=== PATIENT | female | born 1975 | race Two or more races ===

== ENCOUNTER → 2019-12-18 | Outpatient (CLI) | payer OTHER ==
--- NOTE | 2019-12-18 15:35 | RAD ---
EXAMINATION: BREAST RIGHT, DIGITAL DIAGNOSTIC BILATERAL History: Reason: RT BREAST LUMP / Spl. Instructions: / History: Comparison: None. This exam is a baseline. Technique: Bilateral digital diagnostic mammogram views were obtained. CAD was utilized. 3-D tomosynthesis images were acquired. Findings: Breast Tissue Density C : The breasts are heterogeneously dense, which may obscure small masses. Marker was placed at the right upper outer breast.. There is a well-circumscribed mass at the right upper outer breast measuring up to 3 cm in diameter. This smoothly marginated round mass persists on spot compression. Asymmetry lateral to it is less evident on spot compression imaging. Superior to this finding, there is a 0.45 cm diameter asymmetry or possibly mass. At the inferior right breast at the middle one third, there is a 0.6 cm diameter asymmetry or mass. There are no suspicious left breast findings. No suspicious calcifications or distortion. Limited right breast ultrasound exam was performed. At the right breast 10:00 region 5 cm from the nipple, there is a 2.6 cm x 2.4 cm x 2.2 centimeter tall cyst. No suspicious findings. The right breast 12:00 region, there is a 0.45 cm diameter cyst. The right breast 8:00 region 7 cm from the nipple, there is a 0.9 cm diameter simple cyst. At the right breast 7:00 region 4 cm from the nipple, there is a 0.6 cm x 0.5 cm x 0.6 cm tall well-circumscribed cystic-appearing structure with internal debris or possibly thin septations. IMPRESSION: Right upper outer breast large simple cyst is identified and corresponds to the reported palpable abnormality. No suspicious mass of the right upper-outer breast. There is a complicated or possibly mildly complex right breast 7:00 region cyst. Six-month follow-up right mammography and right breast ultrasound examination is recommended to assess stability. BI-RADS category 3: Probably benign. The images were reviewed with computer aided detection. Patient information is entered into the reminder system with a target due date for the next screening mammogram. Mammography is the most sensitive method for finding small breast cancers, but it does not detect them all and is not a substitute for careful clinical examination. A negative mammogram does not negate a clinically suspicious finding and should not result in delay in biopsying a clinically suspicious abnormality. "Our facility is accredited by the [employer] Mammography Program." Electronically signed by: Shahram Arreguin MD (12/18/2019 3:33 PM) [id number]
== END | disposition home or self-care (01) ==
LOC: MAMMO 13:28
PROVIDERS: ATTEND Family Medicine
DX: N63.11 Unspecified lump in the right breast, upper outer quadrant (principal); N60.01 Solitary cyst of right breast
CPT/HCPCS: 76641; 77066

== ENCOUNTER → 2020-10-23 | Outpatient (CLI) | payer OTHER ==
--- NOTE | 2020-10-23 16:14 | RAD ---
AP and Lateral Views of the Chest 10/23/2020 3:08 PM Indication: Reason: LEFT SIDE CHEST PAIN RADIATING DOWN LEFT ARM / Spl. Instructions: / History: Comparison: None Findings: There is mild blunting right costophrenic angle possibly trace effusion or atelectasis. No pneumothorax is identified. Heart size is normal. Bony thorax is intact. IMPRESSION: Blunting of right costophrenic angle possible small pleural effusion or atelectasis Electronically signed by: Leo Lozano MD (10/23/2020 4:11 PM) [id number]
== END ==
LOC: RAD 15:03
PROVIDERS: ATTEND Family Medicine
DX: R07.89 Other chest pain (principal)
CPT/HCPCS: 71046

== ENCOUNTER 2021-01-29 00:07 | Observation (INO) | payer OTHER ==
[~2021-01-29] VITALS: Ht 152.4 cm; Wt 65.5 kg
--- NOTE | 2021-01-29 00:13 | PHYS DOC ---
Past History Past Medical History: Angina, Diabetes, High Cholesterol, Hypertension Smoking: Non-smoker General Adult HPI: HPI: ".. I have chest pain... every night.. since July.. I see Dr. Campa.. I see [facility]... I see Dr. Trevino.. I have chest pain.. all the time.. ... chest pain every night..." " They are waiting .. to do something..." Patient is a 44 year old female who presents with above hx and complaints nightly central chest pain. Pain is located in the middle chest. There is some slight shortness of breath. There is some association with deep breaths and cough. Patient did have a diagnosis of Covid on December 25. No vaccination for COVID. Patient does have a history of diabetes and elevated cholesterol. Patient denies any trauma. Patient denies any specific ill contacts. Patient denies any immunosuppression. Patient denies any recent travel. Patient is on lisinopril for hypertension. Takes insulin for diabetes. No previous history of myocardial infarction. No previous history of DVT or pulmonary embolisms. Patient states overall symptoms are worse tonight. Patient noticed lower leg edema with more on the left. Chest pain tonight became much more severe after coming out of the shower approximately 1 hour ago. Patient does not smoke. Review of Systems: Review of Systems: Constitutional: Denies fever or chills Eyes: Denies change in visual acuity HENT: Denies nasal congestion or sore throat Respiratory: Complains of shortness of breath Cardiovascular: Complains of chest pain and left ankle edema GI: Denies abdominal pain, nausea, vomiting, bloody stools or diarrhea : Denies dysuria Musculoskeletal: Denies back pain or joint pain Integument: Denies rash Neurologic: Denies headache, focal weakness or sensory changes Endocrine: Denies polyuria or polydipsia Lymphatic: Denies swollen glands Psychiatric: Denies depression or anxiety Family History: Family History: Noncontributory Current Medications: Current Meds: See nursing for home meds Allergies: Allergies: No known drug allergies Physical Exam: PE: Constitutional: In acute distress, non-toxic appearance. [] HENT: Normocephalic, atraumatic, bilateral external ears normal, oropharynx moist, no oral exudates, nose normal. [] Eyes: PERRLA, EOMI, conjunctiva normal, no discharge. [] Neck: Normal range of motion, no tenderness, supple, no stridor. [] Cardiovascular: Tachycardia heart rate regular rhythm, no murmur [] Lungs & Thorax: Bilateral breath sounds equal apex with scattered wheezing throughout on auscultation [] Abdomen: Bowel sounds normal, soft, no tenderness, no masses, no pulsatile masses. Insulin injection barrera Skin: Warm, diaphoretic, no erythema, no rash. [] Back: No tenderness, no CVA tenderness. [] Extremities: No tenderness, no cyanosis, no clubbing, ROM intact, bilateral lower leg edema. More edema on the left. Neurologic: Alert and oriented X 3, normal motor function, normal sensory function, no focal deficits noted. [] Psychologic: Affect anxious, judgement normal, mood normal. [] EKG: EKG: My interpretation of EKG shows a sinus tachycardia with ST changes consistent with subendocardial injury. Abnormal EKG []Suspect Acute Inferior AZ. Time of EKG is 00 18 minutes My interpretation second EKG at 204 hours shows a sinus tachycardia [address] and T abnormality. Findings consistent with inferior AZ. Overall morphology is somewhat improved or her first EKG. Radiology/Procedures: Radiology/Procedures: [][place] [address] IMAGING REPORT Signed PATIENT: FADUMO POLLOCKACCOUNT: [id number] : 1975 LOCATION: ER AGE: 45 SEX: F EXAM STATUS: REG ER ORD. PHYSICIAN: ELVIRA FELIZ MD REASON: cp PROCEDURE: PORTABLE CHEST 1V Study: XR CHEST 1V Indication: Chest pain. Comparison: 10/23/2020 Findings: Hazy airspace opacities at the lower half of both lungs on a background of increased lung markings. No large effusion or pneumothorax. Unchanged cardiomediastinal silhouette and jordon. Impression: New from the 10/23/2020 comparison are ill-defined, hazy opacities at the lower half of both lungs. In the appropriate clinical setting a viral/atypical pneumonia should be considered. [place] less likely given patient age is pulmonary edema. Electronically signed by: NEENA MYLES MD (01/29/2021 1:04 AM) [facility] DICTATED AND SIGNED BY: NEENA MYLES MD DATE: 01/29/21 010 CC: ALLISON CAMPA MD; ELVIRA FELIZ MD ~MTH0 0 Heart Score: C/O Chest Pain: Yes HEART Score for Chest Pain: HEART Score for Chest Pain Response (Comments) Value History Highly Suspicious 2 ECG Nonspecific Repolarizatio 1 Age >45 - < 65 1 Risk Factors 1 or 2 Risk Factors 1 Troponin >3 x Normal Limit 2 Total 7 Risk Factors: Risk Factors: DM, Current or recent (<one month) smoker, HTN, HLP, family history of CAD, obesity. Risk Scores: Score 0 - 3: 2.5% MACE over next 6 weeks - Discharge Home Score 4 - 6: 20.3% MACE over next 6 weeks - Admit for Clinical Observation Score 7 - 10: 72.7% MACE over next 6 weeks - Early Invasive Strategies Course & Med Decision Making: Course & Med Decision Making Pertinent Labs and Imaging studies reviewed. (See chart for details) Discussed presentation, testing and tx. [plan with Dr. Rodriguez. Give full dosage of Lovenox and aspirin.. Cardilology will follow her Trops.here at [facility]. Admit to Dr. Dodd. At time of transport to [facility] -ICU, pt. report s marked resolution of chest discomfort, and less shortness of breath. Call placed to Dr. Dodd- Discussed finding with him at 0830 hrs. Impression: 1, Chest Pain 2. + COVID test 12/25/2020- ( no vaccination) 3. Hx. DM 4. Hx HTN 5. Repiratory Failure - Hypoxia 83% Rm Air 6. CHF- BNP 6702 7. AZ = Trop .1.388 8. Anemia Hgb-10.3 9. Anemia hemoglobin 10.3 10.Renal Insuf. Bun 25/Creat.1.4 [] Prasanth Disclaimer: Prasanth Disclaimer: This electronic medical record was generated, in whole or in part, using a voice recognition dictation system. Departure Departure: Referrals: ALLISON CAMPA MD (PCP) Prasanth Disclaimer This chart was dictated in whole or in part using Voice Recognition software in a busy, high-work load, and often noisy Emergency Department environment. It may contain unintended and wholly unrecognized errors or omissions. Dragon Disclaimer This chart was dictated in whole or in part using Voice Recognition software in a busy, high-work load, and often noisy Emergency Department environment. It may contain unintended and wholly unrecognized errors or omissions. Dragon Disclaimer This chart was dictated in whole or in part using Voice Recognition software in a busy, high-work load, and often noisy Emergency Department environment. It may contain unintended and wholly unrecognized errors or omissions. ELVIRA FELIZ MD Jan 29, 2021 00:13
[2021-01-29] MEDS ORDERED: IV RINGERS SOLUTION,LACTATED 1,000 ML IV SCH (01:00)
[2021-01-29] MEDS ORDERED: ASPIRIN 325 MG TABLET PO ONE (01:00)
[2021-01-29] MEDS ORDERED: ENOXAPARIN ** NOTE DOSE ** SYRINGE SQ ONE ×2 (01:02→01:30)
--- NOTE | 2021-01-29 01:06 | RAD ---
Study: XR CHEST 1V Indication: Chest pain. Comparison: 10/23/2020 Findings: Hazy airspace opacities at the lower half of both lungs on a background of increased lung markings. N o large effusion or pneumothorax. Unchanged cardiomediastinal silhouette and jordon. Impression: New from the 10/23/2020 comparison are ill-defined, hazy opacities at the lower half of both lungs. In the appropriate clinical setting a viral/atypical pneumonia should be considered. [place] less likely gi tari patient age is pulmonary edema. Electronically signed by: NEENA MYLES MD (01/29/2021 1:04 AM) [facility]ERS[facility]MYA
[2021-01-29 01:24] LABS: BARBITURATES NEG (NEG); BENZODIAZEPINES NEG (NEG); CANNABINOIDS NEG (NEG); COCAINE NEG (NEG); METHADONE NEG (NEG); OPIATES NEG (NEG); PHENCYCLIDINE NEG (NEG)
[2021-01-29 01:25] LABS: BASO # 0.1 x10^3/uL (0.0-0.2); BASO % 1 % (0-3); EOS # 0.1 x10^3/uL (0.0-0.7); EOS % 1 % (0-3); HEMATOCRIT 31.7 % (36.0-47.0); HEMOGLOBIN 10.3 g/dL (12.0-15.5); LYMPH # 1.2 x10^3/uL (1.0-4.8); LYMPH % 11 % (24-48); MEAN CORPUSCULAR HEMOGLOBIN 28 pg (25-35); MEAN CORPUSCULAR HGB CONC 33 g/dL (31-37); MEAN CORPUSCULAR VOLUME 85 fL (79-100); MONO # 0.4 x10^3/uL (0.0-1.1); MONO % 4 % (0-9); NEUT # 9.9 x10^3uL (1.8-7.7); NEUT % 84 % (31-73); PLATELET COUNT 510 x10^3/uL (140-400); RED BLOOD COUNT 3.71 x10^6/uL (3.50-5.40); RED CELL DISTRIBUTION WIDTH 16.5 % (11.5-14.5); WHITE BLOOD COUNT 11.8 x10^3/uL (4.0-11.0)
[2021-01-29 01:29] LABS: CALCIUM 8.2 mg/dL (8.5-10.1); CREATININE 1.4 mg/dL (0.6-1.0); GFR 40.5; POTASSIUM 4.9 mmol/L (3.5-5.1)
[2021-01-29 01:30] LABS: AMPHETAMINE/METHAMPHETAMINE NEG (NEG)
[2021-01-29 01:31] LABS: BILIRUBIN,URINE NEG (NEG); CLARITY,URINE CLEAR; COLOR,URINE YELLOW; GLUCOSE,URINE 100 mg/dL (NEG)
[2021-01-29 01:32] LABS: BACTERIA,URINE 0 /HPF (0-FEW); NITRITE,URINE NEG (NEG); SQUAMOUS EPITHELIAL CELL,UR OCC /LPF; UROBILINOGEN,URINE 0.2 mg/dL (0.2 mg/dL); WBC,URINE RARE /HPF (0-4)
[2021-01-29 01:40] LABS: ALBUMIN 2.3 g/dL (3.4-5.0); DIRECT BILIRUBIN 0.1 mg/dL (0.0-0.2); MAGNESIUM 1.8 mg/dL (1.8-2.4); TOTAL BILIRUBIN 0.2 mg/dL (0.2-1.0); TOTAL PROTEIN 5.6 g/dL (6.4-8.2)
[2021-01-29] MEDS ORDERED: ACETAMINOPHEN 325 MG TABLET PO PRN (02:15)
[2021-01-29] MEDS ORDERED: MORPHINE SULFATE 2 MG/ML DISP.SYRIN. IVP PRN (02:15)
[2021-01-29] MEDS ORDERED: ONDANSETRON PF 4 MG/2 ML VIAL. IVP PRN (02:15)
--- NOTE | 2021-01-29 02:15 | EKG ---
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
--- NOTE | 2021-01-29 02:17 | EKG ---
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
[2021-01-29] MEDS ORDERED: NITROGLYCERIN OINT 1 GM PACKET. TP ONE (02:30)
[2021-01-29] MEDS ORDERED: POTASSIUM CHLORIDE 20 MEQ TABLET.ER. PO ONE (02:30)
[2021-01-29] MEDS ORDERED: ANTI-COAG MONITOR BY PHARMACY. MC PRN (02:30)
[2021-01-29] MEDS ORDERED: FUROSEMIDE 40 MG/4 ML VIAL IVP ONE (02:30)
[2021-01-29 04:36] VITALS: BP 177/93
[2021-01-29] MEDS ORDERED: INSU100V37 SQ (05:06)
[2021-01-29] MEDS ORDERED: ASPI-630 PO (05:06)
[2021-01-29] MEDS ORDERED: LISI10TA16 PO (05:06)
--- NOTE | 2021-01-29 05:51 | NUR ---
The patient, FADUMO POLLOCK, 45 y/o, F admitted by CHERYLE MARK MD, was given written information regarding hospital policies, unit procedures and contact persons. Valuables were checked and noted. Reviewed with PT her PMH, PSH, SH, FH and medications.
[2021-01-29] MEDS ORDERED: IV NORMAL SALINE 1,000ML 1,000 ML IV SCH ×2 (06:00→09:00)
[2021-01-29] MEDS ORDERED: HEPARIN 25,000UTS/250ML PREMIX 250 ML IV ONE (06:06)
[2021-01-29] MEDS ORDERED: HEPARIN 25,000UTS/250ML PREMIX 250 ML IV PRN (06:15)
[2021-01-29] MEDS ORDERED: HEPARIN for IV BOLUS 10,000 UNIT/10 ML VIAL. IV PRN (06:15)
[2021-01-29] MEDS ORDERED: NITROGLYCERIN PREMIX 250 ML IV PRN (06:15)
[2021-01-29 07:00] VITALS: BP 165/96
--- NOTE | 2021-01-29 07:05 | NUR ---
Dr. [place] notified of elevated troponin at 0440. Orders received. PT transferred to ICU for drips to be started awaiting bed placement at [facility]. Dr. Dodd notified at 0515.
[2021-01-29 08:00] VITALS: BP 146/86
[2021-01-29] MEDS ORDERED: ASPIRIN CHEWABLE 81 MG TABLET. PO SCH (08:00)
--- NOTE | 2021-01-29 08:24 | NUR ---
Dr Rodriguez called regarding pt most recent troponin of 18.804, Dr Rodriguez states he will be in to see pt soon and wants a new 12 lead EKG Addendum: 01/29/21 at 0826 by XANDER THOMSON RN 12 lead completed. pt denies chest pain at this time
--- NOTE | 2021-01-29 08:46 | NUR ---
Tiffany, nurse practitioner with Cardiology called and stated to have pt transferred to [place] for a heart cath. He stated he spoke with Dr Coburn, asked that we get pt transferred to [place] to go straight to matlab developer, he states pt can wait in holding until there is a bed available. Addendum: 01/29/21 at 0855 by XANDER THOMSON RN called nursing tapper supervisor and updated her
[2021-01-29 09:00] VITALS: BP 165/91
[2021-01-29] MEDS ORDERED: ENOXAPARIN ** NOTE DOSE ** SYRINGE SQ SCH (09:00)
[2021-01-29] MEDS ORDERED: NITROGLYCERIN OINT 1 GM PACKET. TP SCH (09:00)
--- NOTE | 2021-01-29 09:29 | NUR ---
EMS here to get pt, gtts running, Dr Coburn notified
--- NOTE | 2021-01-29 09:55 | NUR ---
Patient left the unit via EMS on a gurney accompanied by the EMS personnel. Patient was alert and oriented and verbalized understanding of her current status and condition. Patient was educated on cardiac catheterization procedure but was also informed that she would received further explantation and education upon arrival at the shift lab technician. Patient had nitroglycerin, heparin, and normal saline infusing at the time of discharge. This RN called the patients daughter to inform her of the patients departure also let the daughter know that shift lab technician RN said the patient could have a visitor with her at [facility].
[2021-01-29 14:24] LABS: THYROID STIM HORMONE (TSH) 1.922 uIU/mL (0.358-3.740)
== END 2021-01-29 09:45 | disposition short-term general hospital (02) ==
LOC: ER 00:07 → INTOOBSV 02:09 → 1 SOUTH 02:09 → ICU 06:27
PROVIDERS: ADMIT Internal Medicine; ATTEND Internal Medicine
DX: R07.89 Other chest pain (principal); D64.9 Anemia, unspecified; I11.0 Hypertensive heart disease with heart failure; I50.9 Heart failure, unspecified; R09.02 Hypoxemia; Z20.822 Contact with and (suspected) exposure to COVID-19; E11.9 Type 2 diabetes mellitus without complications; E78.00 Pure hypercholesterolemia, unspecified; Z79.4 Long term (current) use of insulin; Z79.01 Long term (current) use of anticoagulants; Z79.899 Other long term (current) drug therapy
CPT/HCPCS: 36415; 71045; 80048; 80061; 80076; 80307; 81001; 82550; 83690; 83735; 83880; 84443; 84484; 85025; 85379; 85610; 85730; 87426; 93005; 96361; 96365; 96366; 96368; 96372; 96375; 99285; G0378; J1650; J1940; J3490; J7030; J7120; G0379

== ENCOUNTER → 2021-02-17 | Outpatient (CLI) | payer OTHER ==
[2021-01-29 09:00] VITALS: BP 165/91
[~2021-02-17] MED LIST: ASPI-630 PO; INSU100V37 SQ; LISI10TA16 PO
--- NOTE | 2021-02-17 09:40 | RAD ---
XR CHEST 2V INDICATION: SHORT OF AIR AND COUGH FOR 1 MONTH COMPARISON STUDY: 01/29/2021. FINDINGS: Lungs: Normal lung volume. Bilateral perihilar opacities have improved, persistent bibasilar opacitie s. Pleura: New small bilateral pleural effusions. Heart and Mediastinum: Stable cardiomegaly mediastinal silhouette and great vessels. IMPRESSION: 1. New small bilateral pleural effusions. 2. Bilateral perihilar opacities have improved, bibasilar opacities persist. This could represent sub segmental/relaxation atelectasis or potentially an infectious process Electronically signed by: Thomas Perdomo MD (02/17/2021 9:38 AM) [id number]
== END ==
LOC: RAD 09:15
PROVIDERS: ATTEND Family Medicine
DX: J90 Pleural effusion, not elsewhere classified (principal); I51.7 Cardiomegaly
CPT/HCPCS: 71046

== ENCOUNTER → 2021-02-18 | Outpatient (CLI) | payer OTHER ==
[2021-01-29 09:00] VITALS: BP 165/91
--- NOTE | 2021-02-18 18:12 | RAD ---
Exam: Bilateral lower extremity venous duplex study INDICATION: Leg swelling TECHNIQUE: Using a combination of real-time ultrasound imaging and color-flow and pulse Doppler imagi ng techniques along with graded compression and augmentation, duplex evaluation of the deep venous sy stems of bilateral lower extremity was performed. Multiple images were obtained. Findings: There is no sonographic evidence for deep venous thrombosis involving the visualized deep venous stru ctures of the bilateral lower extremity. IMPRESSION: No acute DVT in the bilateral lower extremities. Electronically signed by: Austyn Pedroza MD (02/18/2021 6:09 PM) [id number]
== END ==
LOC: US 17:17
PROVIDERS: ATTEND Family Medicine
DX: M79.604 Pain in right leg (principal); M79.605 Pain in left leg; M79.89 Other specified soft tissue disorders
CPT/HCPCS: 93970